=== PATIENT | male | born 1960 ===

== ENCOUNTER 2020-08-22 09:21 | Day surgery (SDC) | payer OTHER ==
[2020-08-20 13:20] LABS: BASOPHILS % (AUTO) 1 % (0-1); EOSINOPHILS % (AUTO) 2 % (1-7); LYMPHOCYTES % (AUTO) 12 % (22-44); MEAN CORPUSCULAR HEMOGLOBIN 29.2 pg (27.5-34.5); MEAN CORPUSCULAR HGB CONC 32.7 g/dL (33.2-36.2); MEAN PLATELET VOLUME 9.7 fL (7.4-10.4); MONOCYTES % (AUTO) 9 % (2-9); NEUTROPHILS % (AUTO) 76 % (42-75); PLATELET COUNT 148 x10^3/uL (130-400); RED BLOOD COUNT 2.82 x10^6/uL (4.38-5.82); RED CELL DISTRIBUTION WIDTH 15.3 % (9.4-14.8)
[2020-08-20 13:21] LABS: MD NO
[2020-08-20 13:31] LABS: INTERNATIONAL NORMALIZED RATIO 1.09 (0.93-1.1); PROTHROMBIN TIME 11.6 Seconds (9.6-11.5)
[2020-08-20 13:33] LABS: ALBUMIN 3.3 g/dL (3.4-5.0); ANION GAP 5 mmol/L (5-15); CHLORIDE 101 mmol/L (98-107)
[2020-08-20 13:37] LABS: ALANINE AMINOTRANSFERASE 33 U/L (12-78); ALKALINE PHOSPHATASE 48 U/L (45-117); BILIRUBIN,TOTAL 0.4 mg/dL (0.2-1.0); CREATININE 4.71 mg/dL (0.7-1.3); TOTAL PROTEIN 6.7 g/dL (6.4-8.2)
[~2020-08-22] VITALS: Ht 170.2 cm; Wt 80.8 kg
[~2020-08-22 09:21] MED LIST: ASPI-1026 PO; BUPIVACAINE/PF 0.5% ONE; COLC0.6T37 PO; EPINEPHRINE 1 MG/ML, 1ML ONE; FURO-92 PO; HEPARIN 1,000 UNITS/ML, 10ML ONE; INSU100C SQ-INSULIN; INSU100V13 SC; LABE100T6 PO; LISI40TA9 PO; MINO2.5T PO; OMEG1CAP6 PO; PROTAMINE SULFATE 10 MG/ML, 25ML ONE; SIMV40TA20 PO; THROMBIN 20,000 UNIT VIAL TP ONE
[2020-08-22] MEDS ORDERED: LACTATED RINGERS 1,000 ML IV SCH (09:30)
[2020-08-22] MEDS ORDERED: CHLORHEXIDINE 15 ML UDC PO ONE (09:30)
[2020-08-22 09:32] VITALS: BP 148/71
[2020-08-22] MEDS ORDERED: SODIUM CHLORIDE 0.9% 1,000 ML IV SCH (10:00)
[2020-08-22 10:25] LABS: ANION GAP 6 mmol/L (5-15); CALCIUM 8.2 mg/dL (8.5-10.1); CHLORIDE 100 mmol/L (98-107); CREATININE 4.07 mg/dL (0.7-1.3)
[2020-08-22] MEDS ORDERED: ONDANSETRON 2MG/ML, 2ML ONE (10:49)
[2020-08-22] MEDS ORDERED: DEXAMETHASONE 4 MG/ML, 1ML ONE (10:49)
[2020-08-22] MEDS ORDERED: CEFAZOLIN 1,000 MG ONE (10:49)
[2020-08-22] MEDS ORDERED: VASOPRESSIN 20 UNIT/ML, 1ML ONE (10:49)
[2020-08-22] MEDS ORDERED: EPHEDRINE 50 MG/ML, 1ML ONE (10:49)
[2020-08-22] MEDS ORDERED: PROPOFOL 10 MG/ML, 20ML ONE (10:49)
[2020-08-22] MEDS ORDERED: PHENYLEPHRINE 10 MG/ML ONE (10:49)
[2020-08-22] MEDS ORDERED: PAPAVERINE 30 MG/ML, 2ML ONE (11:38)
[2020-08-22] MEDS ORDERED: BUPIVACAINE/PF-EPI 0.5% 1:200K INFIL ONE (12:24)
[2020-08-22] MEDS ORDERED: HEPARIN 1,000 UNITS/ML, 10ML IV ONE (12:24)
[2020-08-22] MEDS ORDERED: HYDR-2214 PO ×3 (13:41→13:45)
[2020-08-22] MEDS ORDERED: LABETALOL 5MG/ML, 20ML IV PRN (14:00)
[2020-08-22] MEDS ORDERED: ACETAMINOPHEN 325 MG TABLET PO PRN (14:00)
[2020-08-22] MEDS ORDERED: FENTANYL PF 100 MCG/2ML IV PRN (14:00)
[2020-08-22] MEDS ORDERED: OXYcodone 5 MG/5 ML ORAL.SOL UDC PO PRN (14:00)
[2020-08-22] MEDS ORDERED: ONDANSETRON 2MG/ML, 2ML IVPush PRN (14:00)
[2020-08-22] MEDS ORDERED: PROMETHAZINE 25 MG SUPP PR PRN (14:00)
[2020-08-22] MEDS ORDERED: METHOCARBAMOL 1,000 MG in DEXTROSE 5% 100 ML IV PRN (14:00)
[2020-08-22] MEDS ORDERED: PROMETHAZINE 25 MG/ML, 1ML IVPush PRN (14:00)
[2020-08-22] MEDS ORDERED: METOPROLOL 1 MG/ML, 5ML IV PRN (14:00)
[2020-08-22] MEDS ORDERED: hydrALAzine 20 MG/ML, 1ML IV PRN (14:00)
[2020-08-22] MEDS ORDERED: HYDROmorphone 1 MG/ML, 1ML INJ IVPush PRN (14:00)
== END 2020-08-22 15:48 | disposition home or self-care (01) ==
LOC: OUT 09:21
PROVIDERS: ATTEND Surgery Vascular Surgery
DX: E11.22 Type 2 diabetes mellitus with diabetic chronic kidney disease (principal); I12.0 Hypertensive chronic kidney disease with stage 5 chronic kidney disease or end stage renal disease; N18.6 End stage renal disease; E78.5 Hyperlipidemia, unspecified; Z20.822 Contact with and (suspected) exposure to COVID-19; Z79.4 Long term (current) use of insulin; Z79.82 Long term (current) use of aspirin; Z79.899 Other long term (current) drug therapy; Z86.73 Personal history of transient ischemic attack (TIA), and cerebral infarction without residual deficits; Z87.891 Personal history of nicotine dependence; Z88.8 Allergy status to other drugs, medicaments and biological substances; Z82.49 Family history of ischemic heart disease and other diseases of the circulatory system
CPT/HCPCS: 36415; 36818; 71046; 80048; 80053; 82962; 85025; 85610; 85730; 93005; J0171; J0690; J1100; J1644; J2370; J2405; J2704; J7030; U0003; J2720; J2440